=== PATIENT | male | born 1945 | race Two or more races ===

== ENCOUNTER 2023-03-03 15:09 | Emergency (ER) | payer SELFPAY ==
[2023-03-03 15:23] VITALS: BMI 23.6
[2023-03-03] MEDS ORDERED: LACTATED RINGERS SOLUTION 1,000 ML/1,000 ML INFUS.BAG IV STA (16:37)
[2023-03-03 17:20] LABS: BASO % 0.3 % (0-2.0); EOS % 4.3 % (0-4.5); HEMATOCRIT 35.6 % (35.4-49); HEMOGLOBIN 12.8 GM/dL (11.7-16.9); LYMPH % 28.2 % (8-40); MCH 30.8 pg (25.7-33.7); MCHC 36.1 g/dl (32.0-35.9); MEAN CELL VOLUME 85.4 fl (80-96); MEAN PLT VOLUME 7.6 fl (7.5-11.1); NEUT % 58.2 % (42.8-82.8); PLATELET COUNT 170 10^3/uL (134-434); RBC 4.16 M/mm3 (4.00-5.60); VENOUS BASE EXCESS -3.2 mmol/L (-2-2); VENOUS O2 SATURATION 87.3 % (70-80); VENOUS PCO2 36.1 mmHg (38-52); VENOUS PH 7.387 (7.310-7.410)
[2023-03-03 17:29] LABS: INR 0.97 (0.83-1.09); PROTHROMBIN TIME (PATIENT) 11.3 SEC (9.7-13.0)
[2023-03-03 17:32] LABS: ACTIVATED PTT 30.8 SECONDS (25.2-36.5)
[2023-03-03 17:50] LABS: CHLORIDE 105 mmol/L (98-107); POTASSIUM 5.4 mmol/L (3.5-5.1); SODIUM 135 mmol/L (136-145)
[2023-03-03 17:53] LABS: ALBUMIN 3.2 g/dl (3.4-5.0); ANION GAP 8 MMOL/L (8-16); BLOOD UREA NITROGEN 34.9 mg/dL (7-18); CO2 22 mmol/L (21-32); MAGNESIUM 2.4 mg/dL (1.8-2.4)
[2023-03-03] MEDS ORDERED: INSULIN (NOVOLOG) ASPART 100 UNITS/ML 10ML VIAL SQ ONE (17:54)
[2023-03-03 17:56] LABS: CREATININE 1.2 mg/dL (0.55-1.3); SGOT/AST 30 U/L (15-37); SGPT/ALT 37 U/L (13-61)
[2023-03-03 17:57] LABS: TOT PROT 6.9 g/dl (6.4-8.2)
[2023-03-03 17:58] LABS: BILIRUBIN,TOTAL 0.5 mg/dL (0.2-1)
[2023-03-03 17:59] LABS: ALK PHOS 179 U/L (45-117)
[2023-03-03] MEDS ORDERED: LACTATED RINGERS SOLUTION 1,000 ML/1,000 ML INFUS.BAG IV SCH (18:00)
[2023-03-03 18:01] LABS: GLUCOSE,RANDOM 445 mg/dL (74-106)
[2023-03-03 18:35] LABS: EPI CELLS 1 /uL (0-25.1); HYALINE CASTS 0 /uL (0-3.1); PH,URINE 6.5 (5.0-8.0); URINE APPEARANCE CLEAR; URINE BACTERIA 3 /uL (0-1359); URINE BILIRUBIN NEGATIVE (NEGATIVE); URINE COLOR YELLOW; URINE GLUCOSE (UA) 3+ (NEGATIVE); URINE KETONE NEGATIVE (NEGATIVE); URINE LEUK ESTERASE NEGATIVE (NEGATIVE); URINE NITRITE NEGATIVE (NEGATIVE); URINE PROTEIN 1+ (NEGATIVE); URINE RBC 15 /uL (0-23.9); URINE UROBILINOGEN 0.2 mg/dL (0.2-1.0); URINE WBC 2 /uL (0-25.8)
[2023-03-03 21:17] LABS: BLOOD UREA NITROGEN 30.6 mg/dL (7-18); CALCIUM 8.3 mg/dL (8.5-10.1)
[2023-03-03 22:33] VITALS: BP 140/76; PULSE 87; RESP 18; TEMP 98
== END 2023-03-03 22:35 | disposition home or self-care (01) ==
LOC: JER 15:09
PROC: 3E0337Z Introduction of Electrolytic and Water Balance Substance into Peripheral Vein, Percutaneous Approach (ICD-10-PCS; principal; 2023-03-03)
PROC: 3E013VG Introduction of Insulin into Subcutaneous Tissue, Percutaneous Approach (ICD-10-PCS; 2023-03-03)
DX: R73.9 Hyperglycemia, unspecified (principal); Z76.0 Encounter for issue of repeat prescription; R07.9 Chest pain, unspecified; R06.02 Shortness of breath; R19.7 Diarrhea, unspecified; R30.0 Dysuria; Z20.822 Contact with and (suspected) exposure to COVID-19
CPT/HCPCS: 0241U-QW; 36415; 71045-TC-FY; 80048; 80053; 81003; 82010; 82803; 82962; 83735; 84100; 84484; 85025; 85610; 85730; 86850; 86900; 86901; 87086; 93005; 93010

== ENCOUNTER 2024-01-28 13:39 | Observation (INO) | payer OTHER ==
[2024-01-28 15:32] LABS: BASO % 0.6 % (0-2.0); EOS % 1.6 % (0-4.5); HEMATOCRIT 27.6 % (35.4-49); HEMOGLOBIN 9.8 GM/dL (11.7-16.9); LYMPH % 16.9 % (8-40); MCH 29.6 pg (25.7-33.7); MCHC 35.6 g/dl (32.0-35.9); MEAN CELL VOLUME 83.1 fl (80-96); MEAN PLT VOLUME 6.7 fl (7.5-11.1); NEUT % 73.9 % (42.8-82.8); PLATELET COUNT 221 10^3/uL (134-434); RBC 3.32 M/mm3 (4.00-5.60); WHITE BLOOD COUNT 8.4 K/mm3 (4.0-10.0)
[2024-01-28 15:57] LABS: POTASSIUM 5.1 mmol/L (3.5-5.1)
[2024-01-28 16:00] LABS: ALBUMIN 2.9 g/dl (3.4-5.0); BLOOD UREA NITROGEN 44.3 mg/dL (7-18); CALCIUM 8.3 mg/dL (8.5-10.1)
[2024-01-28 16:04] LABS: CREATININE 2.4 mg/dL (0.55-1.3)
[2024-01-28 16:05] LABS: BILIRUBIN,TOTAL 0.8 mg/dL (0.2-1); TOT PROT 6.1 g/dl (6.4-8.2)
[2024-01-28] MEDS ORDERED: ACETAMINOPHEN INJECTION 100 ML IVPB ONE (16:07)
[2024-01-28] MEDS ORDERED: ONDANSETRON 4 MG/2 ML VIAL ONE (16:07)
[2024-01-28 16:21] LABS: EPI CELLS 10 /uL (0-25.1); HYALINE CASTS 1 /uL (0-3.1); URINE APPEARANCE CLEAR; URINE BACTERIA 5 /uL (0-1359); URINE BILIRUBIN NEGATIVE (NEGATIVE); URINE COLOR YELLOW; URINE GLUCOSE (UA) 3+ (NEGATIVE); URINE KETONE NEGATIVE (NEGATIVE); URINE LEUK ESTERASE NEGATIVE (NEGATIVE); URINE NITRITE NEGATIVE (NEGATIVE); URINE PROTEIN 4+ (NEGATIVE); URINE RBC 50 /uL (0-23.9); URINE UROBILINOGEN 0.2 mg/dL (0.2-1.0); URINE WBC 10 /uL (0-25.8)
[2024-01-28] MEDS: ACETAMINOPHEN 1000 MG/100 ML BAG IVPB ONE (16:35)
[2024-01-28] MEDS: SODIUM CHLORIDE 1,000 ML IV STA (16:35)
[2024-01-28] MEDS: ONDANSETRON 4 MG/2 ML VIAL IVPUSH ONE (16:35)
[2024-01-28] MEDS ORDERED: CEFTRIAXONE 1 GM/50 ML BAG ONE (19:30)
[2024-01-28] MEDS: LACTATED RINGERS SOLUTION 1000 ML INFUS.BAG IV ONE (19:31)
[2024-01-28] MEDS: CEFTRIAXONE 1 GM in DEXTROSE 5%-WATER - 100 ML IVPB ONE (19:38)
[2024-01-29] MEDS: INSULIN (LEVEMIR) 100 UNITS/ML UNITS SQ ONE (01:22)
[2024-01-29] MEDS: INSULIN ASPART SLIDING SCALE (NOVOLOG) 1 VIAL SQ SCH (01:22)
[2024-01-29] MEDS: LACTATED RINGERS SOLUTION 1,000 ML/1,000 ML INFUS.BAG IV SCH (01:29)
[2024-01-29] MEDS: INSULIN (NOVOLOG) ASPART 100 UNITS/ML 10ML VIAL SQ SCH (06:31)
[2024-01-29] MEDS: TAMSULOSIN HCL 0.4 MG CAP PO SCH (08:28)
[2024-01-29 09:16] LABS: BASO % 0.4 % (0-2.0); EOS % 1.3 % (0-4.5); HEMATOCRIT 28.2 % (35.4-49); HEMOGLOBIN 10.1 GM/dL (11.7-16.9); LYMPH % 15.8 % (8-40); MCH 29.7 pg (25.7-33.7); MCHC 35.9 g/dl (32.0-35.9); MEAN CELL VOLUME 82.7 fl (80-96); MEAN PLT VOLUME 6.7 fl (7.5-11.1); MONO % 6.8 % (3.8-10.2); NEUT % 75.7 % (42.8-82.8); PLATELET COUNT 228 10^3/uL (134-434); RDW 14.2 % (11.9-15.9); WHITE BLOOD COUNT 8.9 K/mm3 (4.0-10.0)
[2024-01-29] MEDS: CEFTRIAXONE 1 GM in DEXTROSE 5%-WATER - 50 ML IVPB SCH (09:36)
[2024-01-29 09:57] LABS: CALCIUM 8.3 mg/dL (8.5-10.1)
[2024-01-29 09:58] LABS: ALBUMIN 2.8 g/dl (3.4-5.0); BLOOD UREA NITROGEN 31.9 mg/dL (7-18); MAGNESIUM 2.2 mg/dL (1.8-2.4)
[2024-01-29] MEDS ORDERED: HYDROCHLOROTHIAZIDE 12.5 MG CAPSULE (FP) PO SCH (10:00)
[2024-01-29] MEDS ORDERED: LISINOPRIL 20 MG TABLET PO SCH (10:00)
[2024-01-29 10:01] LABS: PHOSPHOROUS 2.8 mg/dL (2.5-4.9)
[2024-01-29 10:02] LABS: BILIRUBIN,TOTAL 0.5 mg/dL (0.2-1); TOT PROT 5.8 g/dl (6.4-8.2)
[2024-01-29] MEDS: amLODIPine BESYLATE 10 MG TABLET (FP) PO ONE (10:21)
[2024-01-29] MEDS: METOCLOPRAMIDE HCL INJECTION 10 MG/2 ML VIAL IVPUSH PRN (12:24)
[2024-01-29] MEDS: FAMOTIDINE 20 MG/50 ML IVPB 20 MG/50 ML MG IVPB SCH (12:24)
[2024-01-29] MEDS: INSULIN (LEVEMIR) 100 UNITS/ML UNITS SQ SCH (21:39)
[2024-01-30] MEDS: amLODIPine BESYLATE 10 MG TABLET (FP) PO ONE (14:50)
[2024-01-30 15:05] VITALS: BMI 21.0
[2024-01-30] MEDS: LABETALOL HCL 100 MG TABLET (FP) PO SCH (20:10)
[2024-01-31] MEDS: INSULIN (LEVEMIR) 100 UNITS/ML UNITS SQ SCH (06:08)
[2024-01-31] MEDS: LISINOPRIL 10 MG TABLET PO SCH (09:57)
[2024-01-31] MEDS: amLODIPine BESYLATE 10 MG TABLET (FP) PO SCH (09:57)
[2024-01-31 10:49] LABS: BASO % 0.6 % (0-2.0); EOS % 4.5 % (0-4.5); HEMATOCRIT 25.7 % (35.4-49); HEMOGLOBIN 9.3 GM/dL (11.7-16.9); LYMPH % 21.6 % (8-40); MCH 30.2 pg (25.7-33.7); MCHC 36.3 g/dl (32.0-35.9); MEAN CELL VOLUME 83.2 fl (80-96); MEAN PLT VOLUME 6.5 fl (7.5-11.1); NEUT % 63.3 % (42.8-82.8); PLATELET COUNT 214 10^3/uL (134-434); RBC 3.09 M/mm3 (4.00-5.60); RDW 14.4 % (11.9-15.9); WHITE BLOOD COUNT 8.1 K/mm3 (4.0-10.0)
[2024-01-31 11:02] LABS: CHLORIDE 108 mmol/L (98-107); POTASSIUM 3.8 mmol/L (3.5-5.1); SODIUM 137 mmol/L (136-145)
[2024-01-31 11:07] LABS: ALBUMIN 2.7 g/dl (3.4-5.0); ANION GAP 6 mmol/L (4-13); BLOOD UREA NITROGEN 30.8 mg/dL (7-18); CO2 24 mmol/L (21-32)
[2024-01-31 11:10] LABS: CREATININE 2.3 mg/dL (0.55-1.3); SGOT/AST 19 U/L (15-37); SGPT/ALT 16 U/L (13-61)
[2024-01-31 11:11] LABS: GLUCOSE,RANDOM 42 mg/dL (74-106); TOT PROT 5.6 g/dl (6.4-8.2)
[2024-01-31 11:13] LABS: ALK PHOS 82 U/L (45-117); BILIRUBIN,TOTAL 0.4 mg/dL (0.2-1)
[2024-01-31] MEDS: DEXTROSE 50%-WATER 25 GM/50 ML DISP.SYRIN IVPUSH ONE (11:27)
[2024-01-31 17:32] VITALS: BP 137/77; PULSE 71; RESP 16; TEMP 97
[2024-02-01 17:10] LABS: STOOL PH 6.5 (7.0-7.5)
== END 2024-01-31 16:48 | disposition home or self-care (01) ==
LOC: JER 13:39 → JERBED 22:19 → J5S 01-29 00:28
PROVIDERS: ADMIT Internal Medicine
PROC: 3E033NZ Introduction of Analgesics, Hypnotics, Sedatives into Peripheral Vein, Percutaneous Approach (ICD-10-PCS; principal; 2024-01-28)
PROC: 3E03329 Introduction of Other Anti-infective into Peripheral Vein, Percutaneous Approach (ICD-10-PCS; 2024-01-28)
PROC: 3E033GC Introduction of Other Therapeutic Substance into Peripheral Vein, Percutaneous Approach (ICD-10-PCS; 2024-01-28)
PROC: 3E013VG Introduction of Insulin into Subcutaneous Tissue, Percutaneous Approach (ICD-10-PCS; 2024-01-28)
PROC: 3E0337Z Introduction of Electrolytic and Water Balance Substance into Peripheral Vein, Percutaneous Approach (ICD-10-PCS; 2024-01-28)
DX: N39.0 Urinary tract infection, site not specified (principal); R39.9 Unspecified symptoms and signs involving the genitourinary system; E11.22 Type 2 diabetes mellitus with diabetic chronic kidney disease; I12.9 Hypertensive chronic kidney disease with stage 1 through stage 4 chronic kidney disease, or unspecified chronic kidney disease; N18.9 Chronic kidney disease, unspecified; N17.9 Acute kidney failure, unspecified; N40.0 Benign prostatic hyperplasia without lower urinary tract symptoms
CPT/HCPCS: 36415; 71046-TC-FY; 74176-TC; 80053; 81003; 82438; 82710; 82962; 83036; 83605; 83690; 83735; 83986; 83993; 84100; 84302; 84484; 84999; 85025; 86753; 87086; 87209; 87328; 87329; 87427; 93005; 93010; 96361; 96365; 96366; 96367; 96372; 96375; 99285-25; G0378; J0131

== ENCOUNTER 2024-06-17 05:34 | Emergency (ER) | payer OTHER ==
[2024-06-17 06:14] VITALS: TEMP 97.3; BMI 24.8
[2024-06-17] MEDS ORDERED: TRANEXAMIC ACID 1000 MG/10 ML VIAL ONE (07:28)
[2024-06-17] MEDS: TRANEXAMIC ACID 1000 MG/10 ML VIAL IVPUSH ONE (08:22)
[2024-06-17 09:22] VITALS: RESP 18
[2024-06-17] MEDS: OXYMETAZOLINE 0.05% NASAL SOLUTION 15 ML BOTTLE NS ONE (10:00)
[2024-06-17 16:02] VITALS: BP 158/77; PULSE 77
== END 2024-06-17 17:30 ==
LOC: JER 05:34
PROC: 093K7ZZ Control Bleeding in Nasal Mucosa and Soft Tissue, Via Natural or Artificial Opening (ICD-10-PCS; principal; 2024-06-17)
PROC: 3E033GC Introduction of Other Therapeutic Substance into Peripheral Vein, Percutaneous Approach (ICD-10-PCS; 2024-06-17)
DX: R04.0 Epistaxis (principal); R42 Dizziness and giddiness
CPT/HCPCS: 99284-25